=== PATIENT | female | born 1985 | race Caucasian/White ===

== ENCOUNTER 2023-10-24 21:29 | Outpatient (CLI) | payer MEDICAID, OTHER | END 2023-10-24 23:59 | disposition critical access hospital (66) | LOC: EMS 21:29 | DX: R10.12 Left upper quadrant pain (principal); R10.32 Left lower quadrant pain; R10.31 Right lower quadrant pain; R11.2 Nausea with vomiting, unspecified; R10.814 Left lower quadrant abdominal tenderness; R10.812 Left upper quadrant abdominal tenderness; R10.813 Right lower quadrant abdominal tenderness; R06.82 Tachypnea, not elsewhere classified; R03.0 Elevated blood-pressure reading, without diagnosis of hypertension; M79.89 Other specified soft tissue disorders | CPT/HCPCS: A0425; A0429; A0999 ==

== ENCOUNTER 2023-10-24 21:42 | Emergency (ER) | payer MEDICAID, OTHER ==
--- NOTE | 2023-10-24 22:18 | ED Physician Documentation ---
PD HPI ABD PAIN - Stated complaint Stated Complaint: VOMITING - Chief complaint Chief Complaint: Abd Pain - History obtained from History obtained from: Patient - Additional information Additional information: HPI from patient. Patient complains of abdominal pain since last night, generalized/diffuse. There was no specific inciting event. The pain is described as sharp, radiating through to the midline back. The anterior aspect of the abdominal pain is diffuse but patient indicates it is most pronounced in the epigastrium and left lower quadrant. Pain is exacerbated with movement, partially ameliorated with rest. The pain is been constant, although waxing and waning, since onset last night. During the day today, she found that the pain was steadily worsening. This evening, she was at work today [employer] [place] [employer] and had episodes of dizziness, diaphoresis, nausea and vomiting. She says she had increasing generalized weakness and helped herself to ground tonight (did not fall) and then had LOC which she estimates to have lasted "a few minutes" (per patient). Denies HAYS, visual changes, focal weakness, numbness. Past abdominal surgical history includes cholecystectomy repair of rectocele, excision of fibroid. Review of Systems Constitutional: reports: Fatigue, Sweats Cardiac: reports: Reviewed and negative Respiratory: reports: Reviewed and negative GI: reports: Abdominal Pain, Abdominal Swelling, Nausea, Vomiting. denies: Constipation, Diarrhea, Hematemesis, Bloody / black stool : denies: Dysuria, Frequency, Now EGA Skin: reports: Reviewed and negative Musculoskeletal: reports: Reviewed and negative Neurologic: reports: Generalized weakness, Syncope. denies: Focal weakness, Numbness, Headache PD PAST MEDICAL HISTORY - Past Medical History Past Medical History: Yes Neuro: Migraines GI: Diverticulitis Musculoskeletal: Fibromyalgia Other Past Medical History: hereditary angioedema - Past Surgical History Past Surgical History: Yes Derm: Skin cancer surgery - Present Medications Home Medications: Ambulatory Orders Medication Instructions Recorded Confirmed Acetaminophen [Tylenol] 10/24/23 Cetirizine [ZyrTEC] 10/24/23 Dextroamphetamine/Amphetamine 10/24/23 [Adderall 10 mg Tablet] Icatibant Acetate [Firazyr] 10/24/23 Liraglutide [Victoza 2-Alan] 10/24/23 10/24/23 Meclizine HCl [Antivert] 10/24/23 Omeprazole 10/24/23 SUMAtriptan [Imitrex] 10/24/23 methocarbamoL [Methocarbamol] 10/24/23 traMADol [Ultram] 10/24/23 - Allergies Allergies/Adverse Reactions: Allergies Allergy/AdvReac Type Severity Reaction Status Date / Time adhesive tape Allergy Rash Verified 10/24/23 21:59 dexamethasone Allergy Hives Verified 10/24/23 21:59 hydrocodone Allergy Rash Verified 10/24/23 21:59 oxycodone Allergy Rash Verified 10/24/23 21:59 prednisone Allergy Hives Verified 10/24/23 21:59 C1 esterase inhibitor, AdvReac Headache Verified 10/24/23 21:59 recombinant dapsone AdvReac Unknown Verified 10/24/23 21:59 doxepin AdvReac Unknown Verified 10/24/23 21:59 icatibant AdvReac Unknown Verified 10/24/23 21:59 - Social History Does the pt smoke?: No Smoking Status: Never smoker Does the pt drink ETOH?: No Does the pt have substance abuse?: No - Immunizations Immunizations are current?: Yes - POLST Patient has POLST: No PD ED PE NORMAL - Vitals Vital signs reviewed: Yes - General General: Alert and oriented X 3, No acute distress, Well developed/nourished - HEENT HEENT: Other (tacky/pasty mucous membranes) - Neck Neck: Supple, no meningeal sign, No JVD - Cardiac Cardiac: RRR, No murmur - Respiratory Respiratory: No respiratory distress, Clear bilaterally - Abdomen Abdomen: Soft, Non distended - Derm Derm: Normal color, Warm and dry - Extremities Extremities: No edema - Neuro Neuro: Alert and oriented X 3, lead cargoman 2-12 intact, No motor deficit, No sensory deficit, Normal speech Eye Opening: Spontaneous Motor: Obeys Commands Verbal: Oriented GCS Score: 15 - Psych Psych: Normal mood, Normal affect PD ED PE EXPANDED - Abdomen Abdomen: Tender to palpation (diffusely, most pronounced across lower abdomen and epigastrium (not as tender BUQ)) Results - Vitals Vitals: Oxygen O2 Source Room air - Labs Labs: Laboratory Tests 10/24/23 10/24/23 10/24/23 22:20 22:20 22:20 WBC 10.5 RBC 5.02 Hgb 12.9 Hct 41.6 MCV 82.9 MCH 25.7 L MCHC 31.0 L RDW 13.1 Plt Count 256 MPV 11.2 H Neut # (Auto) 8.1 H Lymph # (Auto) 1.8 [place] # (Auto) 0.4 Eos # (Auto) 0.1 Baso # (Auto) 0.0 Absolute Nucleated RBC 0.00 Nucleated RBC % 0.0 Sodium 136 Potassium 4.1 Chloride 106 Carbon Dioxide 23 Anion Gap 7.0 BUN 7 Creatinine 0.7 Estimated GFR (MDRD) 93 Glucose 143 H Calcium 9.9 Total Bilirubin 0.3 AST 35 ALT 36 Alkaline Phosphatase 63 Total Protein 6.8 Albumin 4.2 Globulin 2.6 Albumin/Globulin Ratio 1.6 Lipase 26 Urine Color YELLOW Urine Clarity CLEAR Urine pH 7.0 Ur Specific [place] 1.025 Urine Protein 30 H Urine Glucose (UA) NEGATIVE Urine Ketones NEGATIVE Urine Occult Blood NEGATIVE Urine Nitrite NEGATIVE Urine Bilirubin NEGATIVE Urine Urobilinogen 0.2 (NORMAL) Ur Leukocyte Esterase NEGATIVE Urine RBC 0-5 Urine WBC 0-3 Ur Squamous Epith Cells MANY Squamous H Urine Bacteria Few Ur Microscopic Review INDICATED Urine Culture Comments NOT INDICATED Urine HCG, Qual NEGATIVE - Rads (name of study) CT A/P with IV contrast Relevant Findings:: Prelim report reviewed, See rad report PD Medical Decision Making - ED course Complexity details: reviewed results, re-evaluated patient, considered differential, d/w patient ED course: IV established and patient is given 1 L normal saline IV, 4 mg IVP Zofran, and 30 mg IV Toradol; she reports adequate symptom relief with these measures. Unremarkable CBC, ER abdominal panel, UA. UHCG negative. CT A/P with IV contrast is without acute/explicatory findings; incidental findings include hepatic steatosis, small HH, diverticulosis. Results d/w patient. Etiology of her symptoms is not apparent at this time. Return precautions reviewed, advised to seek follow up with PCP, next available appointment, for reevaluation. Departure - Departure Disposition: 01 Home, Self Care Clinical Impression: Abdominal pain Condition: Good Instructions: ED Abdominal Pain Female Non-Specific Abdominal Pain Follow-Up: FRANKY HOLBROOK MD [Primary Care Provider] - Comments: There were no concerning nor diagnostic findings on tonight's tests, including the blood test, urinalysis, and the CT scan of your abdomen and pelvis. The cause of your symptoms is not apparent at this time. Incidental findings on the CT scan included hepatic steatosis, a small hiatal hernia, and diverticulosis (b ut no evidence of diverticulitis). Contact your primary care provider when the office is next open to arrange for the next available appointment for follow-up/reevaluation. Discharge Date/Time: 10/25/23 00:58
[2023-10-24 22:41] LABS: BASOPHILS % (AUTO) 0.3 %; EOSINOPHILS # (AUTO) 0.1 10^3/uL (0.0-0.7); EOSINOPHILS % (AUTO) 0.9 %; HCT - HEMATOCRIT 41.6 % (37.0-47.0); HGB - HEMOGLOBIN 12.9 g/dL (12.0-16.0); LYMPHOCYTES # (AUTO) 1.8 10^3/uL (1.5-3.5); LYMPHOCYTES % (AUTO) 17.5 %; MEAN CORPUSCULAR HEMOGLOBIN 25.7 pg (27.0-31.0); MEAN CORPUSCULAR VOLUME 82.9 fL (81.0-99.0); MEAN PLATELET VOLUME 11.2 fL (7.9-10.8); MONOCYTES # (AUTO) 0.4 10^3/uL (0.0-1.0); MONOCYTES % (AUTO) 4.1 %; NEUTROPHILS # (AUTO) 8.1 10^3/uL (1.5-6.6); NEUTROPHILS % (AUTO) 76.8 %; PLT - PLATELET COUNT 256 10^3/uL (130-450); RED BLOOD COUNT 5.02 10^6/uL (4.20-5.40); RED CELL DISTRIBUTION WIDTH 13.1 % (12.0-15.0); WHITE BLOOD COUNT 10.5 x10^3/uL (4.8-10.8)
[2023-10-24 22:44] LABS: BILIRUBIN,URINE NEGATIVE (NEGATIVE); GLUCOSE, URINE (UA) NEGATIVE (NEGATIVE); KETONES,URINE (UA) NEGATIVE (NEGATIVE); LEUKOCYTE ESTERASE, URINE NEGATIVE (NEGATIVE); NITRITE,URINE NEGATIVE (NEGATIVE); OCCULT BLOOD,URINE NEGATIVE (NEGATIVE); PROTEIN,URINE 30 mg/dL (NEGATIVE); UROBILINOGEN,URINE 0.2 (NORMAL) E.U./dL (NORMAL)
[2023-10-24 22:47] LABS: CLARITY,URINE CLEAR (CLEAR); HCG UR QUAL NEGATIVE
[2023-10-24 22:55] LABS: BACTERIA,URINE Few /HPF (None Seen); RBC,URINE 0-5 /HPF (0-5); SQUAMOUS EPITHELIAL CELL,UR MANY Squamous (<= Few); WBC,URINE 0-3 /HPF (0-5)
[2023-10-24 22:57] LABS: ALBUMIN 4.2 g/dL (3.2-5.5); ALBUMIN/GLOBULIN RATIO 1.6 (1.0-2.2); BILIRUBIN,TOTAL 0.3 mg/dL (0.2-1.0); CALCIUM 9.9 mg/dL (8.5-10.3); CREATININE 0.7 mg/dL (0.6-1.3); POTASSIUM 4.1 mmol/L (3.5-4.5); TOTAL PROTEIN 6.8 g/dL (6.4-8.9)
[2023-10-24] MEDS: ONDANSETRON 4 MG/2 ML VIAL IVP STA (22:59)
[2023-10-24] MEDS: KETOROLAC 30 MG/ML VIAL IVP STA (23:00)
[2023-10-24] MEDS ORDERED: iohexoL-300 100 ML VIAL ONE (23:01)
[2023-10-24] MEDS: SODIUM CHLORIDE 0.9% 1,000 ML IV STA (23:05)
[2023-10-24] MEDS: iohexoL-300 100 ML VIAL IVP ONE (23:27)
--- NOTE | 2023-10-25 00:22 | CT Report ---
PROCEDURE: Abdomen/Pelvis W INDICATIONS: diffuse abdominal pain/tenderness CONTRAST: 100 ML OMNI 300 TECHNIQUE: After the administration of intravenous contrast, a CT scan of the abdomen and pelvis was performed. Images were recorded and evaluated at appropriate window settings. Reformats: coronal and sagittal. F or radiation dose reduction, the following was used: automated exposure control, adjustment of mA and /or kV according to patient size. COMPARISON: None. FINDINGS: Image quality: Diagnostic. Lower chest: Bibasilar atelectasis. Small hiatal hernia.. Liver: Hepatic steatosis. Gallbladder: Surgically absent. Biliary tree: No intrahepatic or extrahepatic dilation, accounting for age. Spleen: Borderline splenomegaly. Pancreas: No pancreatic ductal dilation. Adrenals: No adrenal nodule. Kidneys and ureters: No hydronephrosis. No renal cystic lesion which requires follow up. No solid mas s. Stomach, bowel and peritoneum: No gastric or small bowel dilation. No abnormal wall thickening. No pa thologic free fluid. Normal appendix. Colonic diverticulosis without acute diverticulitis. Lymph nodes: No central or retroperitoneal adenopathy. Vessels: No infrarenal aortic aneurysm. Patent portal vein. PELVIS Reproductive organs: Unremarkable. Bladder: No abnormal wall thickening, accounting for underdistention. Pelvic lymph nodes: No pelvic adenopathy by size criteria. Bones: No aggressive osseous abnormality. Other: No significant ventral or inguinal hernia. IMPRESSION: CT abdomen and pelvis without acute abnormalities to explain patient's symptoms. Hepatic steatosis. Status post cholecystectomy. Colonic diverticulosis without acute diverticulitis. Normal appendix. Small hiatal hernia. Reviewed by: Jareth Lacey MD on 10/25/2023 12:21 AM PDT Approved by: Jareth Lacey MD on 10/25/2023 12:21 AM PDT Station ID: [id number]
[2023-10-25 01:05] VITALS: BP 119/84; O2SAT 98
== END 2023-10-25 00:58 | disposition home or self-care (01) ==
LOC: ED 21:42
DX: R10.84 Generalized abdominal pain (principal); R10.13 Epigastric pain; Z79.899 Other long term (current) drug therapy
CPT/HCPCS: 36415; 74177; 80053; 81001; 81025; 83690; 85025; 96374; 96375; 99283; 99284; Q9967; 81003; 87086